=== PATIENT | female | born 1950 | race Caucasian/White ===

== ENCOUNTER → 2016-07-22 | Outpatient (CLI) | payer MEDICARE | END | disposition home or self-care (01) | LOC: GMAB 10:26 | PROVIDERS: ATTEND Family Medicine | DX: E78.2 Mixed hyperlipidemia (principal) ==

== ENCOUNTER → 2017-07-01 | Outpatient (CLI) | payer MEDICARE ==
--- NOTE | 2017-07-01 14:46 | MAM ---
Screening BILATERAL MAMMOGRAMS HISTORY: SCREENING. First order familial history of breast cancer. COMPARISON: August 06, 2015 TECHNIQUE: Digital 2-D mammograms , and 3-D tomosynthesis,1 of both breasts were performed in CC and MLO orientations. Mammo CAD analysis also performed. FINDINGS: Scattered fibroglandular tissue identified in both breasts. Benign microcalcifications scattered in both breasts. No obvious mass lesion or concerning microcalcifications or architectural distortion detected in either breast. IMPRESSION: No mammographic evidence of malignancy in either breast. BI-RADS: 2, benign findings. Follow-up: Annual surveillance recommended for bilateral breasts. Electronically signed by: Bc Price MD 07/01/2017 2:45 PM CDT
== END ==
LOC: MAMMO 10:22
PROVIDERS: ATTEND Family Medicine
DX: Z12.31 Encounter for screening mammogram for malignant neoplasm of breast (principal)

== ENCOUNTER → 2019-04-04 | Outpatient (CLI) | payer MEDICARE | LOC: GMAE 11:08 | PROVIDERS: ATTEND Family Medicine | DX: Z79.899 Other long term (current) drug therapy (principal); E78.2 Mixed hyperlipidemia ==

== ENCOUNTER → 2020-05-14 | Outpatient (CLI) | payer MEDICARE | LOC: GMAE 11:13 | PROVIDERS: ATTEND Family Medicine | DX: Z79.899 Other long term (current) drug therapy (principal) ==